=== PATIENT | male | born 1995 | race Caucasian/White ===

== ENCOUNTER 2020-03-10 12:02 | Emergency (ER) | payer BC ==
[~2020-03-10] VITALS: Ht 175.3 cm; Wt 85.6 kg
[2020-03-10 12:03] VITALS: BP 122/91
[2020-03-10] MEDS ORDERED: IBUP200T45 PO (12:17)
[2020-03-10] MEDS ORDERED: ACET-907 PO (12:17)
[2020-03-10] MEDS ORDERED: ONDANSETRON 4 MG ORAL DISINTEGRATING TAB PO ONE (13:15)
[2020-03-10] MEDS ORDERED: ONDA4TAB6 PO (13:30)
== END 2020-03-10 14:23 | disposition home or self-care (01) ==
LOC: M ED 12:02
DX: Z20.828 Contact with and (suspected) exposure to other viral communicable diseases (principal); R50.9 Fever, unspecified; R11.2 Nausea with vomiting, unspecified; R51.9 Headache, unspecified
CPT/HCPCS: 99283; Q0162; U0003

== ENCOUNTER 2022-10-24 15:46 | Emergency (ER) | payer BC, OTHER ==
[~2022-10-24] VITALS: Ht 175.3 cm; Wt 85.0 kg
[~2022-10-24 15:46] MED LIST: ACET-907 PO; IBUP200T46 PO; ONDA4TAB6 PO
[2022-10-24 17:56] LABS: BASO % 0.2 % (0.0-1.0); HEMATOCRIT 49.6 % (42.0-52.0); HEMOGLOBIN 16.9 g/dl (13.5-17.5); LYMPH # 0.4 10^3/uL (1.5-5.0); LYMPH % 6.3 % (24.0-44.0); MEAN CORPUSCULAR HEMOGLOBIN 28.9 pg (27.0-33.0); MEAN CORPUSCULAR HGB CONC 34.1 g/dl (32.0-36.5); MEAN CORPUSCULAR VOLUME 84.8 fl (80.0-96.0); MONO # 0.3 10^3/uL (0.0-0.8); MONO % 5.1 % (2.0-8.0); NEUTROPHILS % 88.2 % (36.0-66.0); PLATELET COUNT, AUTOMATED 154 10^3/uL (150-450); RED BLOOD COUNT 5.85 10^6/uL (4.30-6.10); WHITE BLOOD COUNT 5.7 10^3/uL (4.0-10.0)
[2022-10-24 18:14] LABS: ALBUMIN 4.3 G/DL (3.2-5.2); ALKALINE PHOSPHATASE 116 U/L (46-116); ALT/SGPT 29 U/L (7.0-40); AST/SGOT 25 U/L (<34); BILIRUBIN,TOTAL 0.8 MG/DL (0.3-1.2); BLOOD UREA NITROGEN 14 MG/DL (9-23); CALCIUM LEVEL 9.3 MG/DL (8.5-10.1); CARBON DIOXIDE LEVEL 23 MMOL/L (20-31); CHLORIDE LEVEL 106 MMOL/L (98-107); CREATININE FOR GFR 0.83 MG/DL (0.70-1.30); GLOMERULAR FILTRATION RATE > 60.0 (>60); GLUCOSE, FASTING 95 MG/DL (60-100); POTASSIUM SERUM 4.2 MMOL/L (3.5-5.1); SODIUM LEVEL 139 MMOL/L (136-145); TOTAL PROTEIN 7.5 G/DL (5.7-8.2)
[2022-10-24] MEDS ORDERED: ONDANSETRON 4MG 2ML VIAL IV ONE (19:30)
[2022-10-24 21:24] LABS: RSV AMPLIFICATION NEGATIVE (NEGATIVE)
[2022-10-24] MEDS ORDERED: KETOROLAC 30 MG/ML 1ML VIAL IV ONE (21:45)
[2022-10-24] MEDS ORDERED: ONDA4TAB6 PO (22:04)
[2022-10-24] MEDS ORDERED: DOXY-444 PO (22:04)
[2022-10-24] MEDS ORDERED: DOXYCYCLINE HYCLATE 100MG TABLET PO ONE (22:05)
[2022-10-24 22:15] VITALS: BP 120/74; TEMP 100.4; O2SAT 99
== END 2022-10-24 22:16 | disposition home or self-care (01) ==
LOC: M ED 15:46
DX: A69.20 Lyme disease, unspecified (principal)
CPT/HCPCS: 36415; 80053; 85025; 86618; 87631; 93005; 96374; 96375; 99284; J1885; J2405

== ENCOUNTER → 2023-09-29 | Outpatient (CLI) | payer BC ==
[~2023-09-29] MED LIST changes: +DOXY-440 PO; +ONDA-282 PO; -ONDA4TAB6 PO
== END ==
LOC: M PLAIMG 13:43
PROVIDERS: ATTEND Internal Medicine Cardiovascular Disease
DX: R94.31 Abnormal electrocardiogram [ECG] [EKG] (principal); I34.0 Nonrheumatic mitral (valve) insufficiency

== ENCOUNTER → 2024-01-09 | Outpatient (CLI) | payer BC | LOC: M CARPUL 07:32 | PROVIDERS: ATTEND Internal Medicine Cardiovascular Disease | DX: R07.9 Chest pain, unspecified (principal) ==